=== PATIENT | female | born 2000 | race Caucasian/White ===

== ENCOUNTER 2023-08-01 08:33 | Inpatient (IN) | payer BC ==
[~2023-08-01 08:33] MED LIST: Bupivacaine 0.25% HCL 30 ML VIAL ONE
[2023-08-01 09:04] VITALS: BMI 29.4
[2023-08-01] MEDS ORDERED: Butorphanol Tartrate 1 MG/ML VIAL SLOW IVP PRN (09:33)
[2023-08-01] MEDS ORDERED: Promethazine HCl 25 MG/ML VIAL IM PRN ×2 (09:33→13:32)
[2023-08-01] MEDS ORDERED: Ondansetron PF 4 MG/2 ML Vial IVP PRN ×3 (09:33→20:46)
[2023-08-01] MEDS ORDERED: HYDROcodone/Acetaminophen 5/325 mg Tablet PO PRN ×4 (09:33→20:46)
[2023-08-01] MEDS ORDERED: Ibuprofen 800 MG TAB PO PRN (09:33)
[2023-08-01] MEDS ORDERED: hydrALAZINE 20 MG/ML VIAL SLOW IVP PRN ×2 (09:33→20:46)
[2023-08-01] MEDS ORDERED: Lidocaine 1% (PF) 30 ML VIAL SC PRN (09:33)
[2023-08-01] MEDS ORDERED: Lactated Ringer's 1,000 ML IV SCH (09:45)
[2023-08-01] MEDS ORDERED: Oxytocin 30 units/NS 500 ML 500 ML IV SCH ×4 (09:45→20:46)
[2023-08-01] MEDS ORDERED: Misoprostol 100 MCG TAB VAG SCH (09:45)
[2023-08-01 10:59] LABS: Hematocrit 38.4 % (34.9-44.5); Hemoglobin 13.2 g/dL (12.0-15.5); Mean Corpuscular HGB CONC 34.4 g/dL (32.0-36.0); Mean Corpuscular Hemoglobin 29.1 pg (27.0-33.0); Mean Corpuscular Volume 84.8 fl (81.6-98.3); Mean Platelet Volume 13.3 fl (7.4-10.4); Platelet Count 168 10x3/uL (150-450); RBC Distribution Width 13.3 % (11.5-14.5); Red Blood Cell (RBC) Count 4.53 10x6/uL (3.90-5.03); White Blood Cell (WBC) Count 12.4 10x3/uL (3.5-10.5)
[2023-08-01 11:12] LABS: HBSAg Index 0.18 S/CO (0-0.99); Hep B Surf Ag - L&D Non-Reactive S/CO (NonReactive); Syphilis Antibody Nonreactive (Nonreactive); Syphilis Antibody Index 0.04 S/CO (<1.00 Non-Reactive)
[2023-08-01] MEDS ORDERED: fentaNYL/Ropivacaine Epidural 100 ML ONE (13:03)
[2023-08-01] MEDS ORDERED: Moisturizing Cream (Eucerin) 113 GM JAR TOP PRN (13:32)
[2023-08-01] MEDS ORDERED: diphenhydrAMINE 50 MG/ML VIAL IVP PRN (13:32)
[2023-08-01] MEDS ORDERED: Naloxone HCl 0.4 mg/ml Vial IVP PRN ×2 (13:32)
[2023-08-01] MEDS ORDERED: ePHEDrine Sulfate 50 MG/10 ML VIAL SLOW IVP PRN (13:32)
[2023-08-01] MEDS ORDERED: Acetaminophen 325 MG TAB PO PRN (13:32)
[2023-08-01] MEDS ORDERED: Lactated Ringer's 500 ML IV PRN (13:32)
[2023-08-01] MEDS ORDERED: fentaNYL 2 mcg/Ropivacaine 0.2% Epidural 100 ML CADD EPIDURAL SCH (13:45)
[2023-08-01] MEDS ORDERED: Communication Order-Pharmacy FS SCH (13:45)
[2023-08-01] MEDS ORDERED: Benzocaine-Menthol 82.5 ML CAN TOP PRN (20:46)
[2023-08-01] MEDS ORDERED: Preparation H Ointment 28 GM TUBE PR PRN (20:46)
[2023-08-01] MEDS ORDERED: Boostrix 0.5 ML (Tdap) VIAL (>/=7 yrs of age) IM ONE (20:46)
[2023-08-01] MEDS ORDERED: Lanolin Ointment 7 GM TUBE TOP PRN (20:46)
[2023-08-01] MEDS ORDERED: Milk Of Magnesia 30 ML UDCUP PO PRN (20:46)
[2023-08-01] MEDS ORDERED: Bisacodyl 10 MG SUPP PR PRN (20:46)
[2023-08-01] MEDS ORDERED: diphenhydrAMINE 25 MG CAP PO PRN (20:46)
[2023-08-01] MEDS: Docusate 100 MG CAP PO SCH (21:51)
[2023-08-02] MEDS: Ibuprofen 800 MG TAB PO SCH ×4 (00:28→21:51)
[2023-08-02 04:40] LABS: Hematocrit 34.5 % (34.9-44.5); Hemoglobin 11.7 g/dL (12.0-15.5)
[2023-08-02] MEDS: Ferrous Sulfate 325 MG TAB PO SCH ×2 (08:07→15:09)
[2023-08-02] MEDS: Prenatal Vitamin 1 TAB PO SCH (08:08)
[2023-08-02] MEDS: Docusate 100 MG CAP PO SCH ×2 (08:08→21:51)
[2023-08-03] MEDS: Ferrous Sulfate 325 MG TAB PO SCH (07:08)
[2023-08-03 07:47] VITALS: BP 118/71; TEMP 98
[2023-08-03] MEDS: Ibuprofen 800 MG TAB PO SCH (07:52)
[2023-08-03] MEDS: Docusate 100 MG CAP PO SCH (07:52)
[2023-08-03] MEDS: Prenatal Vitamin 1 TAB PO SCH (07:52)
== END 2023-08-03 11:30 | disposition home or self-care (01) | DRG 807 ==
LOC: CSHLD/OP 08:33 → CSHLD 11:22 → CSHPP 20:55
PROVIDERS: ADMIT Obstetrics & Gynecology; ATTEND Obstetrics & Gynecology
PROC: 10E0XZZ Delivery of Products of Conception, External Approach (ICD-10-PCS; principal; 2023-08-01)
PROC: 0KQM0ZZ Repair Perineum Muscle, Open Approach (ICD-10-PCS; 2023-08-01)
PROC: 3E0P7VZ Introduction of Hormone into Female Reproductive, Via Natural or Artificial Opening (ICD-10-PCS; 2023-08-01)
PROC: 3E033XZ Introduction of Vasopressor into Peripheral Vein, Percutaneous Approach (ICD-10-PCS; 2023-08-01)
DX: O76 Abnormality in fetal heart rate and rhythm complicating labor and delivery (principal); Z37.0 Single live birth; O70.1 Second degree perineal laceration during delivery; Z3A.38 38 weeks gestation of pregnancy
CPT/HCPCS: 36415; 51702; 85014; 85018; 85027; 86780; 86850; 86900; 86901; 87340; 99285; J2590; S0020

== ENCOUNTER 2025-08-30 17:56 | Inpatient (IN) | payer BC ==
[~2025-08-30 17:56] MED LIST changes: -Bupivacaine 0.25% HCL 30 ML VIAL ONE; +Bupivacaine/Epinephrine 0.25% 30 ML VIAL ONE
[2025-08-30 18:23] VITALS: BMI 28.3
[2025-08-30] MEDS ORDERED: Tranexamic Acid 1,000 MG/10 ML VIAL IVP PRN (18:46)
[2025-08-30] MEDS ORDERED: Acetaminophen 500 MG TAB PO PRN (18:46)
[2025-08-30] MEDS ORDERED: Methylergonovine 0.2 MG/ML VIAL IM PRN (18:46)
[2025-08-30] MEDS ORDERED: hydrALAZINE 20 MG/ML VIAL SLOW IVP PRN (18:46)
[2025-08-30] MEDS ORDERED: Ibuprofen 800 MG TAB PO PRN (18:46)
[2025-08-30] MEDS ORDERED: Lidocaine 1% (PF) 30 ML VIAL SC PRN (18:46)
[2025-08-30] MEDS ORDERED: Carboprost 250 MCG/ML AMP IM PRN (18:46)
[2025-08-30] MEDS ORDERED: Diphenoxylate HCl/Atropine Tablet PO PRN ×2 (18:46)
[2025-08-30] MEDS ORDERED: Ondansetron PF 4 MG/2 ML Vial IVP PRN (18:46)
[2025-08-30] MEDS ORDERED: Oxytocin 30 units/NS 500 ML 500 ML IV SCH ×2 (19:00)
[2025-08-30 19:19] LABS: Hematocrit 37.3 % (34.9-44.5); Hemoglobin 13.2 g/dL (12.0-15.5); Mean Corpuscular Hemoglobin 30.3 pg (27.0-33.0); Mean Corpuscular Volume 85.7 fL (81.6-98.3); Platelet Count 242 10x3/uL (150-450); Red Blood Cell (RBC) Count 4.35 10x6/uL (3.90-5.03); White Blood Cell (WBC) Count 14.01 10x3/uL (3.5-10.5)
[2025-08-30 21:52] LABS: Syphilis Antibody Index 0.06 S/CO (<1.00 Non-Reactive)
[2025-08-30 21:53] LABS: Hep B Surf Ag - L&D Non-Reactive S/CO (NonReactive)
[2025-08-30] MEDS: fentaNYL/Ropivacaine Epidural 100 ML ONE (22:28)
[2025-08-30] MEDS ORDERED: Acetaminophen 325 MG TAB PO PRN (22:40)
[2025-08-30] MEDS ORDERED: diphenhydrAMINE 50 MG/ML VIAL IVP PRN (22:40)
[2025-08-30] MEDS ORDERED: Communication Order-Pharmacy FS SCH (22:45)
[2025-08-30] MEDS ORDERED: fentaNYL 2 mcg/Ropivacaine 0.2% Epidural 100 ML CADD EPIDURAL SCH (22:45)
[2025-08-31] MEDS: Ondansetron PF 4 MG/2 ML Vial IVP PRN (02:14)
[2025-08-31] MEDS ORDERED: Bisacodyl 10 MG SUPP PR PRN (03:26)
[2025-08-31] MEDS ORDERED: Benzocaine-Menthol 82.5 ML CAN TOP PRN (03:26)
[2025-08-31] MEDS ORDERED: hydrALAZINE 20 MG/ML VIAL SLOW IVP PRN (03:26)
[2025-08-31] MEDS ORDERED: Milk Of Magnesia 30 ML UDCUP PO PRN (03:26)
[2025-08-31] MEDS: Ferrous Sulfate 325 MG TAB PO SCH (09:19)
[2025-08-31] MEDS: Ibuprofen 800 MG TAB PO SCH ×2 (09:56→17:33)
[2025-09-01 03:41] LABS: #Basophils 0.05 10x3/uL (0.0-0.2); #Eosinophils 0.34 10x3/uL (0.0-0.5); #Monocytes 0.99 10x3/uL (0.0-1.1); #Neutrophils 8.92 10x3/uL (1.5-8.4); %Basophils 0.4 % (0.0-2.0); %Eosinophils 2.7 % (0.0-6.0); %Lymphocytes 16.8 % (18.0-47.0); %Monocytes 7.9 % (0.0-10.0); %Neutrophils 71.6 % (40.0-75.0); Hematocrit 35.6 % (34.9-44.5); Hemoglobin 12.1 g/dL (12.0-15.5); Mean Corpuscular Hemoglobin 30.1 pg (27.0-33.0); Mean Corpuscular Volume 88.6 fL (81.6-98.3); Platelet Count 174 10x3/uL (150-450); Red Blood Cell (RBC) Count 4.02 10x6/uL (3.90-5.03); White Blood Cell (WBC) Count 12.47 10x3/uL (3.5-10.5)
[2025-09-01 07:51] VITALS: BP 115/74; TEMP 98.3
== END 2025-09-01 11:55 | disposition home or self-care (01) | DRG 807 ==
LOC: CSHLD/OP 17:56 → CSHLD 19:55 → CSHPP 08-31 05:36
PROVIDERS: ADMIT Obstetrics & Gynecology; ATTEND Obstetrics & Gynecology
PROC: 10E0XZZ Delivery of Products of Conception, External Approach (ICD-10-PCS; principal; 2025-08-31)
PROC: 0HQ9XZZ Repair Perineum Skin, External Approach (ICD-10-PCS; 2025-08-31)
DX: O69.81X0 Labor and delivery complicated by cord around neck, without compression, not applicable or unspecified (principal); Z37.0 Single live birth; O70.0 First degree perineal laceration during delivery; Z3A.38 38 weeks gestation of pregnancy
CPT/HCPCS: 36415; 51702; 85025; 85027; 86780; 86850; 86900; 86901; 87340; 99285; J2405